=== PATIENT | male | born 1955 | race Caucasian/White ===

== ENCOUNTER 2024-01-27 08:38 | Emergency (ER) | payer OTHER, MEDICARE ==
[~2024-01-27] VITALS: Ht 182.9 cm; Wt 96.1 kg
[2024-01-27] MEDS ORDERED: LIPI10TA PO (08:45)
[2024-01-27] MEDS ORDERED: ECOT81TA5 PO (08:45)
[2024-01-27] MEDS ORDERED: LOSA25TA13 PO (08:45)
[2024-01-27] MEDS ORDERED: AMLO10TA PO (08:45)
[2024-01-27] MEDS ORDERED: MELO15TA28 PO (08:45)
[2024-01-27] MEDS ORDERED: ALLO10TA PO (08:45)
[2024-01-27 11:14] VITALS: BP 158/91; TEMP 97.7; O2SAT 96
[2024-01-27] MEDS ORDERED: CEPH500C PO (11:45)
== END 2024-01-27 11:56 | disposition home or self-care (01) ==
LOC: M ED 08:38
DX: S81.812A Laceration without foreign body, left lower leg, initial encounter (principal); Y92.019 Unspecified place in single-family (private) house as the place of occurrence of the external cause; Y93.9 Activity, unspecified; Y99.9 Unspecified external cause status; W10.8XXA Fall (on) (from) other stairs and steps, initial encounter; Z79.899 Other long term (current) drug therapy

== ENCOUNTER 2024-04-01 11:25 | Day surgery (SDC) | payer MEDICARE, OTHER ==
[~2024-04-01] VITALS: Ht 185.4 cm; Wt 94.3 kg
[~2024-04-01 11:25] MED LIST: ALLO10TA PO; AMLO10TA PO; ATOR1TAB21 PO; CEPH500C PO; ECOT81TA5 PO; LIPI10TA PO; LOSA25TA13 PO; LR 1,000 ML IV SCH; MELO15TA28 PO
[2024-04-01] MEDS: FLURBIPROFEN 0.03% OPHTH SOLN 2.5 ML OD SCH (13:59)
[2024-04-01] MEDS: ATROPINE SULFATE 1% OPHTH SOLN 2ML BTL OD SCH (13:59)
[2024-04-01] MEDS: PHENYLEPHRINE 2.5% OPHTH SOL 2ML OD SCH (13:59)
[2024-04-01] MEDS: TETRACAINE 0.5% OPHTH SOLN 4ML OD SCH (13:59)
[2024-04-01] MEDS ORDERED: fentaNYL 100 MCG/2 ML INJECTION As Ordered ONE (15:15)
[2024-04-01] MEDS ORDERED: MIDAZOLAM INJ 2MG/2ML VIAL As Ordered ONE (15:15)
[2024-04-01] MEDS: LIDOCAINE 1% SDV 5ML VIAL As Ordered ONE (15:50)
[2024-04-01] MEDS: CEFUROXIME 1MG/0.1ML INTRACAMERAL INJ As Ordered ONE (15:51)
[2024-04-01 16:17] VITALS: BP 136/81; TEMP 97.4; O2SAT 96
== END 2024-04-01 16:32 | disposition home or self-care (01) ==
LOC: M SDC 11:25
PROVIDERS: ATTEND Ophthalmology
DX: H25.11 Age-related nuclear cataract, right eye (principal); I10 Essential (primary) hypertension; E78.00 Pure hypercholesterolemia, unspecified; Z79.899 Other long term (current) drug therapy
CPT/HCPCS: 66984; 92015; J0697; J2250; J3010; V2788

== ENCOUNTER → 2024-12-24 | Outpatient (REF) | payer MEDICARE, OTHER ==
[~2024-12-24] MED LIST changes: +AMLO-751 PO; -AMLO10TA PO; -LR 1,000 ML IV SCH
== END ==
LOC: M LAB REF 12:37
PROVIDERS: ATTEND Urology
DX: R97.20 Elevated prostate specific antigen [PSA] (principal)

== ENCOUNTER → 2025-02-04 | Outpatient (REF) ==
[~2025-02-04] MED LIST changes: +ALLO300T2 PO; +AMIT25TA19 PO; +D-50CAP PO; +LOSA50TA28 PO; +RA K500C PO; +THERTAB52 PO; +VITA-243 PO
== END ==
LOC: M CFLAB 15:00
DX: N39.0 Urinary tract infection, site not specified (principal)

== ENCOUNTER 2025-02-13 11:09 | Day surgery (SDC) | payer MEDICARE, OTHER ==
[~2025-02-13] VITALS: Ht 185.4 cm; Wt 86.5 kg
[2025-02-13] MEDS: DOCUSATE SODIUM 100 MG CAPSULE PO SCH (09:00)
[~2025-02-13 11:09] MED LIST changes: +ACETAMINOPHEN 1000MG/100ML IV BAG As Ordered ONE; -ALLO300T2 PO; -D-50CAP PO; +KETOROLAC 30 MG/ML 1 ML VIAL As Ordered ONE; +LIDOCAINE 2% 100 MG/5 ML SDV (FOR ANES.) As Ordered ONE; -LOSA50TA28 PO; +MIDAZOLAM INJ 2 MG/2 ML VIAL As Ordered ONE; +ONDANSETRON 4MG 2ML VIAL As Ordered ONE; -RA K500C PO; +ROCURONIUM BROMIDE 50MG/5ML VIAL As Ordered ONE; +SUGAMMADEX SODIUM 500 MG/5 ML VIAL As Ordered ONE; -THERTAB52 PO; -VITA-243 PO; +dexAMETHasone 4 MG/ML 1 ML VIAL As Ordered ONE
[2025-02-13] MEDS: LR 1,000 ML IV SCH (11:30)
[2025-02-13] MEDS: ceFAZolin SOD 2 GM IV ONCE IV ONE ×2 (11:45→14:00)
[2025-02-13] MEDS ORDERED: ALLO300T2 PO (12:18)
[2025-02-13] MEDS ORDERED: LOSA50TA28 PO (12:18)
[2025-02-13] MEDS ORDERED: RA K500C PO (12:20)
[2025-02-13] MEDS ORDERED: HOME MED LIST COMPLETE! XX SCH (12:20)
[2025-02-13] MEDS ORDERED: VITA-243 PO (12:20)
[2025-02-13] MEDS ORDERED: THERTAB52 PO (12:20)
[2025-02-13] MEDS ORDERED: D-50CAP PO (12:20)
[2025-02-13] MEDS ORDERED: PERCOCET 5MG/325MG TAB PO PRN (13:30)
[2025-02-13] MEDS ORDERED: ONDANSETRON 4MG 2ML VIAL IV PRN (13:30)
[2025-02-13] MEDS: HEPARIN SOD 5000 UNITS/ML 1 ML VIAL/SYRINGE SQ ONE (13:45)
[2025-02-13] MEDS ORDERED: LACRILUBE (AKWA TEARS) OPHTH OINT 3.5 GM As Ordered ONE (15:39)
[2025-02-13] MEDS ORDERED: HYDROmorphone HCL 2 MG/ML 1 ML VIAL As Ordered ONE (15:53)
[2025-02-13] MEDS ORDERED: dexmedeTOMIDine (4 MCG/ML) 200 MCG/50 ML BTL As Ordered ONE (16:49)
[2025-02-13] MEDS ORDERED: ACETAMINOPHEN 325 MG TAB PO PRN (17:30)
[2025-02-13] MEDS: LIDOCAINE 1% SDV 30 ML VIAL As Ordered ONE (17:55)
[2025-02-13] MEDS ORDERED: MEPERIDINE 25 MG/ML 1 ML VIAL IV PRN (18:10)
[2025-02-13] MEDS ORDERED: HYDROMORPHONE HCL 0.5 MG/0.5 ML SYRINGE IV PRN (18:10)
[2025-02-13] MEDS: ONDANSETRON 4MG 2ML VIAL IV PRN (18:56)
[2025-02-13 19:11] LABS: PLATELET COUNT, AUTOMATED 265 10^3/uL (150-450)
[2025-02-13 19:33] LABS: CALCIUM LEVEL 9.3 MG/DL (8.3-10.6); CARBON DIOXIDE LEVEL 28.0 MMOL/L (20-31); CHLORIDE LEVEL 104.0 MMOL/L (98-107); CREATININE FOR GFR 0.94 MG/DL (0.70-1.30); GLOMERULAR FILTRATION RATE 86.7 (>42); POTASSIUM SERUM 4.2 MMOL/L (3.5-5.1); SODIUM LEVEL 144.0 MMOL/L (136-145)
[2025-02-13 19:55] VITALS: BP 140/72; TEMP 97.5; O2SAT 91
[2025-02-13] MEDS: NS (Normal Saline) 0.9% 1,000 ML IV SCH (20:21)
[2025-02-13] MEDS: LOSARTAN 50 MG TABLET PO SCH (20:24)
[2025-02-13] MEDS: ATORVASTATIN 20 MG TAB PO SCH (20:24)
[2025-02-13 20:25] VITALS: BP 126/67; TEMP 97.9; O2SAT 97
[2025-02-13] MEDS: PERCOCET 5MG/325MG TAB PO PRN (20:27)
[2025-02-13 21:25] VITALS: BP 137/71; TEMP 97.9; O2SAT 91
[2025-02-13] MEDS: HEPARIN SOD 5000 UNITS/ML 1 ML VIAL/SYRINGE SC SCH (22:19)
[2025-02-13] MEDS: ceFAZolin SOD 1 GM in DEXTROSE 5% (D5W) ADV/MINI-BAG 50 ML IV SCH (22:20)
[2025-02-13 22:25] VITALS: BP 124/74; TEMP 97.9; O2SAT 94
[2025-02-13 23:25] VITALS: BP 130/77; TEMP 97.9; O2SAT 95
[2025-02-14] VITALS (7 sets, daily range): BP systolic 112–126; BP diastolic 59–66; TEMP 98.1–98.7; O2SAT 91–95
[2025-02-14] MEDS: amLODIPine 10 MG TAB PO SCH (08:31)
[2025-02-14 08:54] LABS: PLATELET COUNT, AUTOMATED 243 10^3/uL (150-450)
[2025-02-14] MEDS ORDERED: CIPR-249 PO (08:58)
[2025-02-14] MEDS ORDERED: COLA100C5 PO (08:58)
[2025-02-14] MEDS ORDERED: PERCOCET PO (08:58)
[2025-02-14 09:09] LABS: CALCIUM LEVEL 8.3 MG/DL (8.3-10.6); CARBON DIOXIDE LEVEL 28 MMOL/L (20-31); CHLORIDE LEVEL 103 MMOL/L (98-107); CREATININE FOR GFR 0.83 MG/DL (0.70-1.30); GLOMERULAR FILTRATION RATE > 90.0 (>42); POTASSIUM SERUM 3.9 MMOL/L (3.5-5.1); SODIUM LEVEL 142 MMOL/L (136-145)
== END 2025-02-14 14:09 | disposition home or self-care (01) ==
LOC: M SDC 11:09 → M MSPAV 19:52 → M SDC 02-14 14:09
PROVIDERS: ATTEND Urology
DX: C61 Malignant neoplasm of prostate (principal); I10 Essential (primary) hypertension; E78.00 Pure hypercholesterolemia, unspecified; M10.9 Gout, unspecified; Z79.899 Other long term (current) drug therapy; Z79.82 Long term (current) use of aspirin; Z79.1 Long term (current) use of non-steroidal anti-inflammatories (NSAID)
CPT/HCPCS: 36415; 38571; 55866; 80048; 85027; 86850; 86900; 86901; 88302; 88305; 88309; J0131; J0665; J0690; J1100; J1171; J2250; J2405; J3010